=== PATIENT | male | born 1945 | race African-American/Black ===

== ENCOUNTER → 2017-09-28 | Outpatient (CLI) | payer MEDICARE, MEDICAID ==
[~2017-09-28] MED LIST: ALLOPURINOL100 MG PO; BUTALBITAL ACE PO; CALCIUM ACETAT667 MG PO; FERROUS SULFAT325 M2 PO; FOLIC ACID 1MG T1 MG PO; GAVILAX17 GM/Dose PO; HYDRALAZINE HCL25 M1 PO; HYDRALAZINE100 MG PO; LISINOPRIL 20MG20 MG PO; LISINOPRIL40 MG PO; LORTAB 5/3251 TAB PO; METOPROLOL 25 M25 MG PO; METOPROLOL TAR100 MG PO; MIRALAX(PO17 GM/1 PA PO; NIFEDIPINE XL 330 MG PO; NORCO 325 MG-51 TAB PO; PANTOPRAZOLE SO40 MG PO; PHENERGAN 25MG.25 M1 PO; PHOS LO667 MG PO; PROMETHAZINE HC25 M1 PO; PROMETHAZINE25 MG/ML IM; SENNA PLUS 50 M1 TAB NG; TRAMADOL 50MG T50 M1 PO; VITAMIN C500 M1 PO
[2017-09-28 18:15] LABS: AEROMONAS NOT DETECTED (NOT DETECTE); ASTROVIRUS NOT DETECTED (NOT DETECTE); CYCLOSPORA CAYETANENSIS NOT DETECTED (NOT DETECTE); E COLI O157 NOT DETECTED (NOT DETECTE); ENTEROAGGREGATIVE E COLI NOT DETECTED (NOT DETECTE); ENTEROPATHOGENIC E COLI NOT DETECTED (NOT DETECTE); ENTEROTOXIGENIC E COLI NOT DETECTED (NOT DETECTE); NOROVIRUS NOT DETECTED (NOT DETECTE); SAPOVIRUS NOT DETECTED (NOT DETECTE); SHIGA-LIKE TOXIN PROD. E COLI NOT DETECTED (NOT DETECTE); SHIGELLA/ENTEROINVASIVE E COLI NOT DETECTED (NOT DETECTE); VIBRIO CHOLERAE NOT DETECTED (NOT DETECTE)
== END ==
LOC: LAB 18:13
PROVIDERS: Internal Medicine
DX: R19.7 Diarrhea, unspecified (principal)